=== PATIENT | female | born 1970 | race Caucasian/White ===

== ENCOUNTER → 2020-05-14 | Outpatient (CLI) | payer BC, OTHER ==
[~2020-05-14] MED LIST: ALLERGY INJ SQ; ALLOPURINOL300 MG PO; ARTHRITIS PAIN650 MG PO; CONTRAVE ER 8-1 EACH PO; ELIQUIS 2.5 MG2.5 MG PO; FAMOTIDINE20 MG PO; FLUZONE QU60 MCG/013 IM; HYDROCHLOROTHIAZIDE PO; IBU800 MG PO; KEFLEX CAP 500500 MG PO; LEVOTHYROXINE50 MCG PO; LORTAB 7.5-3251 EACH PO; LOSARTAN POTAS100 MG PO; PEPCID40 MG PO; TIZANIDINE HCL4 MG PO; [UNRECOGNIZED DRUG - REMARK]; [UNRECOGNIZED DRUG - SUPPLY]
== END ==
LOC: KOH-I 14:55
DX: M25.562 Pain in left knee (principal); R93.6 Abnormal findings on diagnostic imaging of limbs
CPT/HCPCS: 73562

== ENCOUNTER → 2020-05-31 | Outpatient (CLI) | payer BC, OTHER ==
[2020-05-31 10:42] LABS: HEMOGLOBIN 13.4 gm/dl (12.3-15.3); RED BLOOD COUNT 4.36 M/UL (4.00-5.10); WHITE BLOOD COUNT 7.9 K/UL (4.5-11.0)
[2020-05-31 11:02] LABS: BUN/CREATININE RATIO 23 (0-10)
[2020-06-02 15:25] LABS: INSULIN 17.7 uIU/mL (2.6-24.9)
[2020-06-03 09:14] LABS: THYROID PEROXIDASE (TPO) AB <9 IU/mL (0-34)
[2020-06-04 15:14] LABS: THYROGLOBULIN ANTIBODY <1.0 IU/mL (0.0-0.9)
== END ==
LOC: LAB 10:15
PROVIDERS: Nurse Practitioner Family
DX: M17.9 Osteoarthritis of knee, unspecified (principal); L71.9 Rosacea, unspecified; J30.2 Other seasonal allergic rhinitis; E66.01 Morbid (severe) obesity due to excess calories; I10 Essential (primary) hypertension; G44.211 Episodic tension-type headache, intractable; G47.63 Sleep related bruxism; J32.9 Chronic sinusitis, unspecified; E03.9 Hypothyroidism, unspecified
CPT/HCPCS: 36415; 80053; 80061; 83036; 83880; 84443; 85027; 86038; 86376; 86800

== ENCOUNTER → 2020-08-29 | Outpatient (CLI) | payer BC, OTHER ==
[2020-08-29 14:31] LABS: BUN/CREATININE RATIO 25 (0-10)
== END ==
LOC: LAB 12:15
PROVIDERS: Internal Medicine Cardiovascular Disease
DX: R01.1 Cardiac murmur, unspecified (principal); R60.9 Edema, unspecified
CPT/HCPCS: 36415; 80053

== ENCOUNTER 2021-07-26 18:48 | Inpatient (IN) | payer BC ==
[~2021-07-26] VITALS: Ht 160 cm; Wt 101.6 kg
[2021-07-26 20:02] LABS: HEMOGLOBIN 12.6 gm/dl (12.3-15.3); RED BLOOD COUNT 4.06 M/UL (4.00-5.10); WHITE BLOOD COUNT 16.8 K/UL (4.5-11.0)
[2021-07-27 06:41] LABS: HEMOGLOBIN 11.2 gm/dl (12.3-15.3); RED BLOOD COUNT 3.64 M/UL (4.00-5.10); WHITE BLOOD COUNT 16.1 K/UL (4.5-11.0)
[2021-07-27 07:11] LABS: BUN/CREATININE RATIO 18 (0-10)
[2021-07-27] MEDS ORDERED: DUEXIS 800-26.1 EACH PO (17:05)
[2021-07-27] MEDS ORDERED: LOSARTAN POTAS100 MG PO (17:05)
[2021-07-27] MEDS ORDERED: NEXIUM40 MG PO (17:05)
[2021-07-27] MEDS ORDERED: SKELAXIN800 MG PO (17:06)
[2021-07-27] MEDS ORDERED: FUROSEMIDE40 MG PO (17:06)
[2021-07-27] MEDS ORDERED: TOPIRAMATE200 MG PO (17:07)
[2021-07-27] MEDS ORDERED: TIZANIDINE HCL4 MG PO (17:07)
[2021-07-27] MEDS ORDERED: HYDROCODON-ACE1 EAC2 PO (17:08)
[2021-07-27] MEDS ORDERED: AZELASTINE137 MCG/0. (17:08)
[2021-07-27] MEDS ORDERED: 24 HOUR ALLERG9.9 ML (17:09)
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
--- NOTE | 2021-07-29 09:59 | NUR ---
SPOKE WITH PROVIDER CONCERNING EARLIER CALL. RECIEVED NEW ORDERS FOR DIET AND MEDICATIONS. SEE ORDERS. WILL CONTINUE TO MONITOR.
--- NOTE | 2021-07-30 18:29 | NUR ---
PATIENT STATED HE FELT LIKE "MY HEART IS RACING". PROVIDER NOTIFIED. PATIENT'S BP AND TEMPS HAD BEEN NORMAL THROUGH OUT THE DAY. PROVIDER ORDERED EKG, TROPONIN LABS, BMP, CBC, CHEST X-RAY, AND 5MG LOPRESSOR IVP, AND CONTINUOUS TELEMTRY WITH PULSE OX. WILL CONTINUE TO MONITOR.
[2021-07-30 18:30] LABS: HEMOGLOBIN 10.3 gm/dl (12.3-15.3); RED BLOOD COUNT 3.38 M/UL (4.00-5.10); WHITE BLOOD COUNT 15.6 K/UL (4.5-11.0)
[2021-07-30 18:48] LABS: BUN/CREATININE RATIO 33 (0-10)
[2021-07-31 06:10] LABS: HEMOGLOBIN 8.8 gm/dl (12.3-15.3)
[2021-07-31 06:13] LABS: RED BLOOD COUNT 2.81 M/UL (4.00-5.10); WHITE BLOOD COUNT 10.7 K/UL (4.5-11.0)
[2021-07-31 06:25] LABS: BUN/CREATININE RATIO 30 (0-10)
--- NOTE | 2021-07-31 19:03 | NUR ---
1330- PATIENT NON COMPLAINT WITH TELE AT THIS TIME.
[2021-08-04 08:03] LABS: HEMOGLOBIN 10.1 gm/dl (12.3-15.3); RED BLOOD COUNT 3.32 M/UL (4.00-5.10); WHITE BLOOD COUNT 13.3 K/UL (4.5-11.0)
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
[2021-08-08 12:57] LABS: BUN/CREATININE RATIO 8 (0-10)
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
[2021-08-09 06:31] LABS: HEMOGLOBIN 8.7 gm/dl (12.3-15.3)
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
[2021-08-11] MEDS ORDERED: ROXICODONE TAB 55 MG PO (08:43)
[2021-08-19] MEDS ORDERED: ROXICODONE TAB 55 MG PO (16:01)
== END 2021-08-11 12:50 | disposition home health service (06) | DRG 853 ==
LOC: ER1 18:48 → CDU 22:00 → MED SURG 4 22:00
PROVIDERS: Family Medicine; Surgery; ADMIT Surgery
PROC: 3E03329 Introduction of Other Anti-infective into Peripheral Vein, Percutaneous Approach (ICD-10-PCS; 2021-07-26)
PROC: 0DTN0ZZ Resection of Sigmoid Colon, Open Approach (ICD-10-PCS; principal; 2021-07-27 08:30)
PROC: 0D1B0Z4 Bypass Ileum to Cutaneous, Open Approach (ICD-10-PCS; 2021-07-27 08:30)
DX: A41.9 Sepsis, unspecified organism (principal); K65.9 Peritonitis, unspecified; Z20.822 Contact with and (suspected) exposure to COVID-19; K57.20 Diverticulitis of large intestine with perforation and abscess without bleeding; K56.7 Ileus, unspecified; I10 Essential (primary) hypertension; E03.9 Hypothyroidism, unspecified; E66.9 Obesity, unspecified; D64.9 Anemia, unspecified; M19.90 Unspecified osteoarthritis, unspecified site; Z98.891 History of uterine scar from previous surgery; Z98.890 Other specified postprocedural states; Z83.3 Family history of diabetes mellitus; Z82.49 Family history of ischemic heart disease and other diseases of the circulatory system; Z68.39 Body mass index [BMI] 39.0-39.9, adult
CPT/HCPCS: 36415; 71045; 74018; 80048; 80053; 81001; 83690; 84132; 84484; 85014; 85018; 85025; 87040; 87070; 87086; 87205; 93005; 96374; 96375; 99285; J1100; J1170; J1200; J1885; J2001; J2250; J2270; J2405; J2543; J2550; J2704; J2710; J3010; J3480; J7030; J7120; Q9967; U0002

== ENCOUNTER 2021-08-17 18:52 | Emergency (ER) | payer BC ==
[~2021-08-17 18:52] MED LIST changes: +24 HOUR ALLERG9.9 ML; +AZELASTINE137 MCG/0.; +DUEXIS 800-26.1 EACH PO; +FUROSEMIDE40 MG PO; +HYDROCODON-ACE1 EAC2 PO; +NEXIUM40 MG PO; +ROXICODONE TAB 55 MG PO; +SKELAXIN800 MG PO; +TOPIRAMATE200 MG PO
[2021-08-17 20:43] LABS: HEMOGLOBIN 10.7 gm/dl (12.3-15.3); RED BLOOD COUNT 3.58 M/UL (4.00-5.10); WHITE BLOOD COUNT 10.8 K/UL (4.5-11.0)
[2021-08-17 21:33] LABS: BUN/CREATININE RATIO 15 (0-10)
[2021-08-17] MEDS ORDERED: PERCOCET 5/325 T1 EA PO (21:38)
[2021-08-19] MEDS ORDERED: ROXICODONE TAB 55 MG PO (16:01)
== END 2021-08-17 22:00 | disposition home or self-care (01) ==
LOC: ER1 18:52
PROVIDERS: Family Medicine
DX: R10.9 Unspecified abdominal pain (principal); R10.817 Generalized abdominal tenderness; I10 Essential (primary) hypertension
CPT/HCPCS: 80053; 81001; 83605; 83690; 85025; 96374; 96375; 99284; J2270; J2405; Q9967

== ENCOUNTER 2021-08-23 21:23 | Inpatient (IN) | payer BC ==
[~2021-08-23] VITALS: Ht 157.5 cm; Wt 95.7 kg
[~2021-08-23 21:23] MED LIST changes: +PERCOCET 5/325 T1 EA PO
[2021-08-23 22:31] LABS: HEMOGLOBIN 12.2 gm/dl (12.3-15.3); RED BLOOD COUNT 4.07 M/UL (4.00-5.10); WHITE BLOOD COUNT 13.9 K/UL (4.5-11.0)
[2021-08-23 23:11] LABS: BUN/CREATININE RATIO 19 (0-10)
[2021-08-24] MEDS ORDERED: PERCOCET 5-3251 EACH PO (15:44)
[2021-08-24] MEDS ORDERED: TOPROL XL25 MG PO (15:46)
[2021-08-24] MEDS ORDERED: LASIX40 MG PO (15:47)
[2021-08-24] MEDS ORDERED: PROMETHAZINE HC25 M1 PO (15:49)
== END 2021-08-27 15:42 | disposition home or self-care (01) | DRG 603 ==
LOC: ER1 21:23 → CDU 23:33 → PROG CARE 08-24 02:15 → MED SURG 4 08-25 19:59
PROVIDERS: Family Medicine; ADMIT Surgery
PROC: 0H97XZZ Drainage of Abdomen Skin, External Approach (ICD-10-PCS; principal; 2021-08-23)
DX: L02.211 Cutaneous abscess of abdominal wall (principal); E03.9 Hypothyroidism, unspecified; I10 Essential (primary) hypertension; Z20.822 Contact with and (suspected) exposure to COVID-19; G89.29 Other chronic pain; K21.9 Gastro-esophageal reflux disease without esophagitis; Z98.890 Other specified postprocedural states; Z93.3 Colostomy status
CPT/HCPCS: 10060; 71045; 80053; 81001; 82550; 82553; 83605; 83690; 84484; 85025; 87040; 87070; 87077; 87086; 87186; 87205; 93005; 96374; 96375; 96376; 99285; G0378; J1335; J2185; J2270; J2405; Q9967; U0002

== ENCOUNTER → 2021-09-30 | Outpatient (CLI) | payer BC ==
[~2021-09-30] MED LIST changes: +LASIX40 MG PO; +PERCOCET 5-3251 EACH PO; +PROMETHAZINE HC25 M1 PO; +TOPROL XL25 MG PO
== END ==
LOC: RAD 09-28 08:00
DX: Z90.49 Acquired absence of other specified parts of digestive tract (principal); K57.30 Diverticulosis of large intestine without perforation or abscess without bleeding
CPT/HCPCS: 74270

== ENCOUNTER → 2021-10-13 | Outpatient (CLI) | payer BC ==
[~2021-10-13] MED LIST changes: +ARTHRITIS PAIN150 GM TP; +AZELASTINE205.5 MCG/; +HYDROCODONE-AC1 EAC1 PO
[2021-10-13 14:20] LABS: HEMOGLOBIN 11.7 gm/dl (12.3-15.3); RED BLOOD COUNT 3.89 M/UL (4.00-5.10); WHITE BLOOD COUNT 9.8 K/UL (4.5-11.0)
[2021-10-13 14:34] LABS: BUN/CREATININE RATIO 24 (0-10)
== END ==
LOC: OPSV2 12:30
PROVIDERS: Anesthesiology
DX: Z01.818 Encounter for other preprocedural examination (principal)
CPT/HCPCS: 36415; 80048; 85025; 93005

== ENCOUNTER 2021-10-15 07:49 | Inpatient (IN) | payer BC ==
[~2021-10-15] VITALS: Ht 157.5 cm; Wt 95.3 kg
[2021-10-16 04:47] LABS: HEMOGLOBIN 12.1 gm/dl (12.3-15.3); RED BLOOD COUNT 4.03 M/UL (4.00-5.10)
[2021-10-16 04:51] LABS: WHITE BLOOD COUNT 17.5 K/UL (4.5-11.0)
[2021-10-16 04:58] LABS: BUN/CREATININE RATIO 22 (0-10)
[2021-10-19] MEDS ORDERED: HYDROCODON-ACE1 EAC2 PO (12:59)
== END 2021-10-19 15:06 | disposition home or self-care (01) | DRG 331 ==
LOC: OR 07:49 → M/S 07:50 → OR 09:00 → M/S 15:00
PROVIDERS: ADMIT Surgery
PROC: 0DBB0ZZ Excision of Ileum, Open Approach (ICD-10-PCS; principal; 2021-10-15 11:35)
DX: Z43.2 Encounter for attention to ileostomy (principal); E03.9 Hypothyroidism, unspecified; I10 Essential (primary) hypertension; M19.91 Primary osteoarthritis, unspecified site; Z90.49 Acquired absence of other specified parts of digestive tract; Z98.890 Other specified postprocedural states
CPT/HCPCS: 36415; 80048; 84703; 85025; J0690; J1100; J1170; J2250; J2405; J2704; J2710; J3010; J7120